=== PATIENT | male | born 1960 | race Caucasian/White ===

== ENCOUNTER 2017-03-11 14:28 | Emergency (ER) | payer BC ==
[2017-03-11 15:30] VITALS: BP 125/71
--- NOTE | 2017-03-15 14:24 | ER ---
DATE SEEN: 03/11/2017 HISTORY OF PRESENT ILLNESS: This is a 56-year-old man, whom I have met before, greeted me put his hand out and says, "Do you remember me?" He said he thanked me over and over. He said "I had an alcohol problem and you prescribed naltrexone." He had used 50% of the pills and has been alcohol free since then. He notes that he has cravings on and off. He is able to manage them. Today, he presents with three weeks' duration of left ear drainage and some discomfort. He has had this plugging on and off for the last two to three years. He notes he picks at his outer ear too often. He stopped smoking six months ago. MEDICATIONS: 1. Carvedilol 25 mg daily. 2. He uses triamcinolone cream, he does not remember why he used it. 3. Lorazepam p.r.n. 4. Citalopram for depression, 20 mg daily. ALLERGIES: None. REVIEW OF SYSTEMS: HEENT: Negative HEENT except for ears, trace outer ear, and denies pain in his ear, and he states he picks the ear frequently. At the lateral antrum (ostia) base left naris is a sore that is painful and comes and goes. He denies oral sores, but he has genitalia sores - H. simplex. CARDIORESPIRATORY/GASTROINTESTINAL: Denies chest pain or irregular heartbeat. Denies gastrointestinal symptoms or symptoms other than intermittent once a year or twice a year herpetic vesicles on the genitalia. EXTREMITIES: Lower extremities, muscles without abnormality. NEURO: Negative. PHYSICAL EXAMINATION: VITAL SIGNS: Blood pressure 121/66, heart rate 77, respirations 18, oxygen saturation 100%, and temperature is 36.3 degrees centigrade. 71.1 kilos, 26.6 kg/m2. GENERAL: Very pleasant, energetic, and has a happy and enthusiastic demeanor. HEENT: PERRLA intact. Pharynx without abnormality. Left naris, nasal dermal squamo-mucosal junction, small red crust is moderately tender to palpation. Otherwise, nares normal in appearance. Left outer ear, moderate weeping serous fluid on the outer helix. . Mild swelling. No suggestion of cauliflower ear. External canal, normal appearance. TMs old scarring, no erythema noted. The external canal is slightly narrowed in caliber. No drainage is noted. No discharge is noted in the external canal. LUNGS: Clear to auscultation without rale or rhonchi or wheeze. HEART: S1, S2. No irregular rate or rhythm. ABDOMEN: Soft. No guarding. No abdominal discomfort. GENITALIA: Not checked. DERMIS: Otherwise checked. ASSESSMENT AND PLAN: DIAGNOSIS: CELLULITIS THE LEFT EAR 1. Probably secondary to digital manipulation, scratching, picking at the scab repetitively causing superficial cellulitis to the external ear. Possible associated chondritis - infection of the cartilage of the left external ear. 2. No evidence for otitis media or serous otitis. 3. No loss of hearing. 4. Herpetic lesion in left naris with crust. 5. Hypertension. 6. The patient was able to successfully stop drinking alcohol. After he took half the tablets I prescribed him (naltrexone 50 mg daily). I am thrilled that he goes to AA and reports to AA members. He has cravings, but he has done and managed very well. Time seen 1445 hours. /[id number] VAMSHI/MIREYA MTDTony
== END 2017-03-11 15:30 | disposition home or self-care (01) ==
LOC: FB.ED 14:28
DX: H60.12 Cellulitis of left external ear (principal); H92.12 Otorrhea, left ear; I10 Essential (primary) hypertension; Z79.899 Other long term (current) drug therapy
CPT/HCPCS: 99283